=== PATIENT | female | born 1975 | race Caucasian/White ===

== ENCOUNTER 2016-11-09 05:00 | Day surgery (SDC) | payer OTHER ==
[2016-11-03 17:51] LABS: HEMATOCRIT 39.1 % (36.0-48.0)
--- NOTE | ~2016-11-09 | OP ---
Record Of Operation [facility] [address] [place]. [address] NAME: DUSTY BLAKELY : 73 STATUS : REG [facility] PAT#: [id number] AGE: 40 ADM/REG DATE : 11/09/16 MR#: [id number] REPORT SERV DATE: 11/09/16 DICTATED BY: PANFILO CHEN DATE: 11/09/16 REPORT STATUS : Draft TRANSCRIBED BY: MODL DATE: 11/09/16 DATE OF PROCEDURE: 11/09/2016 PREOPERATIVE DIAGNOSES: C5-6 disk herniation and cervical disk disease, cervical radiculopathy. POSTOPERATIVE DIAGNOSES: C5-6 disk herniation and cervical disk disease, cervical radiculopathy. PROCEDURES: Anterior cervical diskectomy and fusion C5-C6, placement of Medtronic PEEK interbody spacer C5-6, allograft bone matrix, operative microscope, neuromonitoring, anterior cervical plate from Medtronic C5-C6. SURGEON: Panfilo Chen DO. ANESTHESIA: General. ESTIMATED BLOOD LOSS: 5 mL. COMPLICATIONS: None. INDICATIONS: The patient is a pleasant 40-year-old with intractable neck and arm pain, paresthesias, failed conservative treatment. After discussion of risks and benefits, she elected to proceed with surgery. PROCEDURE IN DETAIL: I identified the patient in the holding area. Consent was obtained. Went to the operating room. Underwent general anesthesia with endotracheal intubation. Prepped and draped in the usual sterile fashion. Operative safety pause was performed, and then we proceeded with surgery. A transverse incision was made over the C5-6 level on the left side taken through the platysma. Dissection was carried out down to the anterior aspect of the spine. Longus colli elevated. Self-retaining retractors were placed. [place] pin was placed at C6 and lateral fluoroscopic image used to verify operative level. Pins were placed at C5 and C6. Distraction applied. Operative microscope was brought in. A knife was used to perform an annulotomy at the C5-C6 level. Free disk material removed with pituitary. Anterior osteophytes removed with a Kerrison. Posterior osteophytes and uncinate processes taken down with a krystal bur. Foraminotomies performed with a Kerrison. There was a large extruded disk fragment on the right side posterior to the posterior longitudinal ligament causing rather severe compression on the exiting nerve root that was removed. The nerves were free of compression at the end of the case. Endplates were final prepared with curettes, rasp, and a cutting bur. Trial spacers were implanted, followed by a Medtronic PEEK interbody spacer with allograft bone matrix. [place] pins were then removed and anterior cervical plate from Medtronic was placed at C5-C6, screws were placed, final tightened locking mechanisms were engaged. Final AP and lateral images were obtained with fluoroscopy. Hemostasis was achieved. Irrigation performed. Layered closure performed. Sterile dressings applied. The patient was awoken and extubated, taken to the recovery room in stable condition. Record Of Operation [facility] [address] [place]. [address] NAME: DUSTY BLAKELY : 73 STATUS : REG [facility] PAT#: [id number] AGE: 40 ADM/REG DATE : 11/09/16 MR#: [id number] REPORT SERV DATE: 11/09/16 DICTATED BY: PANFILO CHEN DATE: 11/09/16 REPORT STATUS : Draft TRANSCRIBED BY: MIGUE DATE: 11/09/16 OPERATIVE FINDINGS: C5-6 disk herniation. No sustained neuromonitoring alerts. JANNY/MIGUE Panfilo Chen DO / [id number] CC: Panfilo Chen DO
[~2016-11-09 05:00] MED LIST: ZOL50 PO
== END 2016-11-09 13:28 | disposition home or self-care (01) ==
LOC: SDC 05:00
PROVIDERS: Orthopaedic Surgery
PROC: 0RG10K0 Fusion of Cervical Vertebral Joint with Nonautologous Tissue Substitute, Anterior Approach, Anterior Column, Open Approach (ICD-10-PCS; 2016-11-09)
PROC: 0RG10A0 Fusion of Cervical Vertebral Joint with Interbody Fusion Device, Anterior Approach, Anterior Column, Open Approach (ICD-10-PCS; principal; 2016-11-09 06:45)
PROC: 0RB30ZZ Excision of Cervical Vertebral Disc, Open Approach (ICD-10-PCS; 2016-11-09 06:45)
DX: M50.122 Cervical disc disorder at C5-C6 level with radiculopathy (principal); F17.210 Nicotine dependence, cigarettes, uncomplicated; Z79.899 Other long term (current) drug therapy
CPT/HCPCS: 36415; 82962; 84703; 85014; 85018; 87641; 88304; 88311; 93005; A9270-GY; C1713; J0690; J1030; J2250; J2405; J2710; J3010